=== PATIENT | male | born 1980 | race Caucasian/White ===

== ENCOUNTER 2019-01-22 12:30 | Emergency (ER) | payer MEDICAID ==
[2019-01-22 13:16] LABS: % BASOPHILS 0.8 % (0.0-2.0); % MONOCYTES 14.5 % (2.0-10.0); % NEUTROPHILS 62.7 % (40.0-80.0); HEMATOCRIT 39.3 % (41.0-60); HEMOGLOBIN 13.2 gm/dL (12-16); LYMPHOCYTE ABSOLUTE 1.1 Th/cmm (1.5-3.0); MEAN CELL VOLUME 86.6 fl (80-99); MEAN CORPUSCULAR HEMOGLOBIN 29.2 pg (26.0-30.0); MEAN CORPUSCULAR HGB CONC 33.7 pg (28.0-36.0); MEAN PLATELET VOLUME 8.2 fl; MONOCYTE ABSOLUTE 0.7 Th/cmm (0.3-1.0); PLATELET COUNT 135 Th/cmm (150-400); RED BLOOD COUNT 4.53 Mil/cmm (4.30-5.70); WHITE BLOOD COUNT 4.8 Th/cmm (4.8-10.8)
[2019-01-22 13:30] LABS: ALB/GLOB RATIO 1.3 (1.0-1.8); ALBUMIN 3.7 gm/dL (4.2-5.5); ALKALINE PHOSPHATASE 50 U/L (34-104); BILIRUBIN,TOTAL 0.4 mg/dL (0.3-1.0); BUN - UREA NITROGEN 6 mg/dL (7-25); CALCIUM SERUM 8.3 mg/dL (8.6-10.3); CARBON DIOXIDE 19.2 mEq/L (21.0-31.0); CHLORIDE 98 mEq/L (98-107); CREATININE - SERUM 0.7 mg/dL (0.7-1.3); GFR AFRICAN-AMERICAN > 60.0 ml/min (>90); GFR NON AFRICAN-AMERICAN > 60.0 ml/min; GLUCOSE 97 mg/dL (70-105); POTASSIUM SERUM 4.2 mEq/L (3.5-5.1); SGOT 25 U/L (13-39); SGPT/ALT 11 U/L (7-52); SODIUM SERUM 126 mEq/L (136-145); TOTAL PROTEIN,SERUM 6.5 gm/dL (6.0-8.3)
[2019-01-22] MEDS: Sodium Chloride 0.9% 1,000 ML IV ONE (14:09)
[2019-01-22 14:22] LABS: AMPHETAMINE URINE NEGATIVE (NEGATIVE); BARBITURATES URINE NEGATIVE (NEGATIVE); CANNABINOID THC NEGATIVE (NEGATIVE); COCAINE METABOLITE QUAL URINE NEGATIVE (NEGATIVE); METHADONE URINE NEGATIVE (NEGATIVE); METHAMPHETAMINES QUAL URINE NEGATIVE (NEGATIVE); OPIATES (MORPHINE) QUAL. URINE NEGATIVE (NEGATIVE); PHENCYCLIDINE (PCP) URINE NEGATIVE (NEGATIVE); TRICYCLICS (TCA) QUAL. URINE NEGATIVE (NEGATIVE)
[2019-01-22 14:23] LABS: BENZODIAZEPINES QUAL URINE POSITIVE (NEGATIVE)
--- NOTE | 2019-01-22 17:05 | ED Physician Chart ---
ED Chief Complaint/HPI - Patient Information Date Seen:: 01/22/19 Time Seen:: 12:45 Chief Complaint:: intoxicated postbed stitcher run History of Present Illness:: long standing etoh abuse Allergies:: Allergies Allergy/AdvReac Type Severity Reaction Status Date / Time No Known Allergies Allergy Verified 01/22/19 12:45 Vitals:: Vital Signs - 8 hr 01/22/19 12:37 Temp 97.7 F HR 88 RR 18 BP 106/66 O2 Sat % 98 ED Review of Systems - Review of Systems General/Constitutional: No fever (unreliable historian) ED Past Medical History - Past Medical History Obtainable: No (intox) ED Physical Exam - Physical Examination General/Constitutional: Awake, Non-toxic appearing Head: Atraumatic Eyes: Lids, conjuctiva normal Other Skin comments:: multiple tattos ENMT: External ears, nose nl Neck: Nontender Respiratory: Nl effort/Exclusion Cardio Vascular: RRR GI: No tenderness/rebounding/guarding Extremities: No tenderness or effusion Neuro/Psych: No focal deficits Misc: Normal back ED Labs/Radiology/EKG Results - Lab Results Results: Laboratory Tests 01/22/19 01/22/19 01/22/19 12:38 13:05 13:05 WBC 4.8 RBC 4.53 Hgb 13.2 Hct 39.3 L MCV 86.6 MCH 29.2 MCHC Differential 33.7 RDW 17.0 Plt Count 135 L MPV 8.2 Neutrophils % 62.7 Lymphocytes % 22.0 Monocytes % 14.5 H Eosinophils % 0.0 Basophils % 0.8 Sodium 126 L Potassium 4.2 Chloride 98 Carbon Dioxide 19.2 L Anion Gap 13.0 BUN 6 L Creatinine 0.7 Est GFR ( Amer) > 60.0 Est GFR (Non-Af Amer) > 60.0 BUN/Creatinine Ratio 8.6 Glucose 97 POC Glucose 95 Calcium 8.3 L Magnesium 2.0 Total Bilirubin 0.4 AST 25 ALT 11 Alkaline Phosphatase 50 Total Protein 6.5 Albumin 3.7 L Globulin 2.8 Albumin/Globulin Ratio 1.3 Urine Opiates Screen Urine Methadone Screen Ur Barbiturates Screen Ur Tricyclics Screen Ur Phencyclidine Scrn Amphetamines Screen U Methamphetamines Scrn U Benzodiazepines Scrn U Cocaine Metab Screen U Cannabinoids Screen Ethyl Alcohol 01/22/19 01/22/19 13:05 13:30 WBC RBC Hgb Hct MCV MCH MCHC Differential RDW Plt Count MPV Neutrophils % Lymphocytes % Monocytes % Eosinophils % Basophils % Sodium Potassium Chloride Carbon Dioxide Anion Gap BUN Creatinine Est GFR ( Amer) Est GFR (Non-Af Amer) BUN/Creatinine Ratio Glucose POC Glucose Calcium Magnesium Total Bilirubin AST ALT Alkaline Phosphatase Total Protein Albumin Globulin Albumin/Globulin Ratio Urine Opiates Screen NEGATIVE Urine Methadone Screen NEGATIVE Ur Barbiturates Screen NEGATIVE Ur Tricyclics Screen NEGATIVE Ur Phencyclidine Scrn NEGATIVE Amphetamines Screen NEGATIVE U Methamphetamines Scrn NEGATIVE U Benzodiazepines Scrn POSITIVE H U Cocaine Metab Screen NEGATIVE U Cannabinoids Screen NEGATIVE Ethyl Alcohol 398 H ED Assessment - Assessment General Assessment: sp eating sleeping pulled out iv bus pass back to location of [facility] family na and stop etoh ED Septic Shock - . Is Septic Shock (SBP<90, OR Lactate>4 mmol\L) present?: No - <6hrs of presentation: Vital Signs: Vital Signs - 8 hr 01/22/19 12:37 Temp 97.7 F HR 88 RR 18 BP 106/66 O2 Sat % 98 ED Reassessment (Disposition) - Patient Disposition Discharge/Transfer:: Against Medical Advice Condition at Disposition:: Stable, Improved
== END 2019-01-22 15:01 | disposition left against medical advice (07) ==
LOC: ER 12:30
DX: F10.129 Alcohol abuse with intoxication, unspecified (principal); Y90.8 Blood alcohol level of 240 mg/100 ml or more
CPT/HCPCS: 36415-UA; 80053-TC; 80307; 80320-TC; 82948-90; 83735-TC; 85025-TC; J7030; Z7502

== ENCOUNTER 2019-01-26 10:59 | Emergency (ER) | payer MEDICAID ==
[2019-01-26 11:30] LABS: HEMATOCRIT 43.8 % (41.0-60); HEMOGLOBIN 14.3 gm/dL (12-16); LYMPHOCYTE ABSOLUTE 0.9 Th/cmm (1.5-3.0); MEAN CORPUSCULAR HEMOGLOBIN 28.4 pg (26.0-30.0); MEAN CORPUSCULAR HGB CONC 32.7 pg (28.0-36.0); MONOCYTE ABSOLUTE 0.7 Th/cmm (0.3-1.0); NEUTROPHILE ABSOLUTE 2.8 Th/cmm (1.8-8.0); PLATELET COUNT 158 Th/cmm (150-400); RED BLOOD COUNT 5.03 Mil/cmm (4.30-5.70); RED CELL DISTRIBUTION WIDTH 17.2 % (11.5-20.0); WHITE BLOOD COUNT 4.4 Th/cmm (4.8-10.8)
--- NOTE | 2019-01-26 11:31 | ED Physician Chart ---
ED Chief Complaint/HPI - Patient Information Date Seen:: 01/26/19 Time Seen:: 11:26 Chief Complaint:: alcohol abuse History of Present Illness:: this is a 38 yo male bib the ems for evaluation and treatment of his alcohol intoxication found down behind [employer]. he was here for the same reason on january 20, 2019. Allergies:: Allergies Allergy/AdvReac Type Severity Reaction Status Date / Time No Known Allergies Allergy Verified 01/22/19 12:45 Vitals:: Vital Signs - 8 hr 01/26/19 11:03 Temp 98.2 F HR 102 RR 15 BP 138/90 O2 Sat % 98 Historian:: Patient, EMS Review:: Nurse's Note Reviewed, Old Chart Reviewed ED Review of Systems - Review of Systems General/Constitutional: No fever, No chills, No weight loss, No weakness, No diaphoresis, No edema, No loss of appetite, Other (this patient is unable to give a review of systems) Skin: No skin lesions, No rash, No bruising Head: No headache, No light-headedness Eyes: No loss of vision, No pain, No diplopia ENT: No earache, No nasal drainage, No sore throat, No tinnitus Neck: No neck pain, No swelling, No thyromegaly, No stiffness, No mass noted Cardio Vascular: No chest pain, No palpitations, No PND, No orthopnea, No edema Pulmonary: No SOB, No cough, No sputum, No wheezing GI: No nausea, No vomiting, No diarrhea, No pain, No melena, No hematochezia, No constipation, No hematemesis G/U: No dysuria, No frequency, No hematuria Musculoskeletal: No bone or joint pain, No back pain, No muscle pain Endocrine: No polyuria, No polydipsia Psychiatric: No prior psych history, No depression, No anxiety, No suicidal ideation Hematopoietic: No bruising, No lymphadenopathy Allergic/Immuno: No urticaria, No angioedema Neurological: No syncope, No focal symptoms, No weakness, No paresthesia, No headache, No seizure, No dizziness, No confusion, No vertigo ED Past Medical History - Past Medical History Obtainable: Yes Past Medical History: Other (alcoholism) Family History: None (unknown) Social History: Non Smoker, Alcohol, Illicit Drug Use, Lives Alone Surgical History: None (unknown) Psychiatricy History: None Medication: Reviewed Family Medical History - Family Member Mother History Unknown: Yes ED Physical Exam - Physical Examination General/Constitutional: Awake, Well-developed, well-nourished, Alert, No distress, GCS 15, Non-toxic appearing, Ambulatory Other Gen/Cons comments:: lethargic but oriented times four Head: Atraumatic Eyes: Lids, conjuctiva normal, PERRL, EOMI Skin: Nl inspection, No rash, No skin lesions, No ecchymosis, Well hydrated, No lymphadenopathy ENMT: External ears, nose nl, Nasal exam nl, Lips, teeth, gums nl Neck: Nontender, Full ROM w/o pain, No JVD, No nuchal rigidity, No bruit, No mass, No stridor Respiratory: Nl effort/Exclusion, Clear to Auscultation, No Wheeze/Rhonchi/Rales Cardio Vascular: RRR, No murmur, gallop, rubs, NL S1 S2 GI: No tenderness/rebounding/guarding, No organomegaly, No hernia, Normal BS's, Nondistended, No mass/bruits, No McBurney tenderness : No CVA tenderness Extremities: No tenderness or effusion, Full ROM, normal strength in all extremities, No edema, Normal digits & nails Neuro/Psych: Alert/oriented, DTR's symmetric, Normal sensory exam, Normal motor strength, Judgement/insight normal, Mood normal, Normal gait, No focal deficits Misc: Normal back, No paraspinal tenderness ED Labs/Radiology/EKG Results - Lab Results Results: Laboratory Results - last 24 hr 01/26/19 01/26/19 01/26/19 10:24 11:24 11:24 WBC 4.4 L RBC 5.03 Hgb 14.3 Hct 43.8 MCV 87.0 MCH 28.4 MCHC Differential 32.7 RDW 17.2 Plt Count 158 MPV 8.0 Add Manual Diff YES Neutrophils (Manual) 61 Lymphocytes 22 Monocytes 16 H Basophils 1 Platelet Estimate ADEQUATE PT 10.6 INR 1.02 PTT (Actin FS) 31.3 Sodium Potassium Chloride Carbon Dioxide Anion Gap BUN Creatinine Est GFR ( Amer) Est GFR (Non-Af Amer) BUN/Creatinine Ratio Glucose Calcium Total Bilirubin AST ALT Alkaline Phosphatase Troponin I Total Protein Albumin Globulin Albumin/Globulin Ratio TSH 0.63 Ethyl Alcohol 01/26/19 01/26/19 01/26/19 11:24 11:24 11:24 WBC RBC Hgb Hct MCV MCH MCHC Differential RDW Plt Count MPV Add Manual Diff Neutrophils (Manual) Lymphocytes Monocytes Basophils Platelet Estimate PT INR PTT (Actin FS) Sodium 131 L Potassium 3.1 L Chloride 94 L Carbon Dioxide 22.1 Anion Gap 18.0 H BUN 5 L Creatinine 0.8 Est GFR ( Amer) > 60.0 Est GFR (Non-Af Amer) > 60.0 BUN/Creatinine Ratio 6.3 Glucose 191 H Calcium 8.7 Total Bilirubin 0.6 AST 61 H ALT 26 Alkaline Phosphatase 56 Troponin I 0.01 Total Protein 7.0 Albumin 4.0 L Globulin 3.0 Albumin/Globulin Ratio 1.3 TSH Ethyl Alcohol 476 H ED Assessment - Assessment General Assessment: alcohol intoxication ED Septic Shock - . Is Septic Shock (SBP<90, OR Lactate>4 mmol\L) present?: No - <6hrs of presentation: Vital Signs: Vital Signs - 8 hr 01/26/19 11:03 Temp 98.2 F HR 102 RR 15 BP 138/90 O2 Sat % 98 ED Reassessment (Disposition) - Reassessment Reassessment Condition:: Unchanged, Improved - Diagnosis Diagnosis:: alcohol intoxication - Aftercare/Follow up Instructions Aftercare/Follow-Up Instructions:: Counseled pt regarding lab results/diagnosis & need follow up, Refer to Discharge Instructions, Counseled pt & family regarding lab results/diagnosis & need follow up - Patient Disposition Discharge/Transfer:: Against Medical Advice (the patient sign out ama and left with his father for home.)
[2019-01-26 11:42] LABS: INR 1.02 (0.5-1.4); PROTHROMBIN TIME (TEST) 10.6 SECONDS (9.5-11.5)
[2019-01-26 11:45] LABS: ALB/GLOB RATIO 1.3 (1.0-1.8); ALKALINE PHOSPHATASE 56 U/L (34-104); BILIRUBIN,TOTAL 0.6 mg/dL (0.3-1.0); BUN - UREA NITROGEN 5 mg/dL (7-25); CALCIUM SERUM 8.7 mg/dL (8.6-10.3); CARBON DIOXIDE 22.1 mEq/L (21.0-31.0); CHLORIDE 94 mEq/L (98-107); CREATININE - SERUM 0.8 mg/dL (0.7-1.3); GFR AFRICAN-AMERICAN > 60.0 ml/min (>90); GFR NON AFRICAN-AMERICAN > 60.0 ml/min; GLUCOSE 191 mg/dL (70-105); POTASSIUM SERUM 3.1 mEq/L (3.5-5.1); SGOT 61 U/L (13-39); SGPT/ALT 26 U/L (7-52); SODIUM SERUM 131 mEq/L (136-145)
[2019-01-26] MEDS ORDERED: Sodium Chloride 0.9% 1,000 ML IV ONE (11:58)
[2019-01-26 11:59] LABS: NEUTROPHILS 61 % (40-80)
[2019-01-26] MEDS ORDERED: Potassium Chloride Elixir 20 mEq /15 mL UDC PO ONE (11:59)
[2019-01-26 12:00] LABS: BASOPHIL 1 % (0-3); LYMPHOCYTE 22 % (20-50); MONOCYTE 16 % (2-10); PLATELET ESTIMATE ADEQUATE (NORMAL)
[2019-01-26] MEDS ORDERED: Potassium Chloride 20 mEq ER Tab PO ONE (12:47)
[2019-01-26] MEDS ORDERED: Potassium Chloride Elixir 20 mEq /15 mL UDC ONE (12:50)
== END 2019-01-26 13:23 | disposition left against medical advice (07) ==
LOC: ER 10:59
DX: F10.129 Alcohol abuse with intoxication, unspecified (principal); Y90.8 Blood alcohol level of 240 mg/100 ml or more
CPT/HCPCS: 36415-UA; 80053-TC; 80320-TC; 83036-90; 84443-TC; 84484-TC; 85007-TC; 85025-TC; 85610-TC; 85730-TC; J7030; Z7502